=== PATIENT | female | born 1970 | race Caucasian/White ===

== ENCOUNTER 2017-01-17 06:47 | Day surgery (SDC) | payer OTHER ==
[2017-01-13 12:00] LABS: WBC (NOT ORDERED) (RFLEX) 0 (0-5)
[2017-01-13 12:14] LABS: HEMATOCRIT 42.4 % (36.0-48.0); HEMOGLOBIN 14.2 g/dL (12.0-16.0)
[2017-01-13 12:30] LABS: CHLORIDE, SERUM 106 MMOL/L (96-112); CO2 (CARBON DIOXIDE) 26 MMOL/L (24-34); CREATININE 0.67 MG/DL (0.55-1.02); GFR AFRICAN AMERICAN 122 ML/MIN (>=60); GFR NON AFRICAN AMERICAN 105 ML/MIN (>=60); POTASSIUM, SERUM 4.3 MMOL/L (3.5-5.3); SODIUM, SERUM 140 MMOL/L (135-148)
[2017-01-13 12:31] LABS: BUN (BLOOD UREA NITROGEN) 18 MG/DL (6-23); GLUCOSE, SERUM 90 MG/DL (60-99)
[2017-01-13 15:38] LABS: ASCORBIC ACID (UR NOT ORDER) NEG (NEG); BILIRUBIN, URINE NEGATIVE (NEG); KETONE, URINE NEGATIVE (NEG); LEUKOCYTE ESTERASE(NOT OR NEG (NEG)
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
[~2017-01-17 06:47] MED LIST: ALEVE220 MG PO; AMITIZA8 MCG PO; ASA5GR PO; BIOTIN5 MG PO; ESTRACE1 MG PO; INDO50 PO; LIOR10 PO; LIPITOR40 PO; LOP25 PO; NORCO1 TAB PO; PCET PO; PRILOSEC40 MG PO; PRIM50B PO; RANITIDINE300 MG PO; SEROQUEL50 MG PO; TOPAMAX25 PO; X25; X25 PO; XANAX1 MG PO; [UNRECOGNIZED DRUG - OTHER]
== END 2017-01-17 15:25 | disposition home or self-care (01) ==
LOC: SDC 06:47
PROVIDERS: Urology
PROC: 01HY0MZ Insertion of Neurostimulator Lead into Peripheral Nerve, Open Approach (ICD-10-PCS; 2017-01-17)
PROC: 01PY0MZ Removal of Neurostimulator Lead from Peripheral Nerve, Open Approach (ICD-10-PCS; principal; 2017-01-17 08:15)
DX: T83.110A Breakdown (mechanical) of urinary electronic stimulator device, initial encounter (principal); E78.00 Pure hypercholesterolemia, unspecified; G25.0 Essential tremor; M19.90 Unspecified osteoarthritis, unspecified site; K21.9 Gastro-esophageal reflux disease without esophagitis; K90.0 Celiac disease; K52.9 Noninfective gastroenteritis and colitis, unspecified; Z86.73 Personal history of transient ischemic attack (TIA), and cerebral infarction without residual deficits; Z87.828 Personal history of other (healed) physical injury and trauma; Z79.899 Other long term (current) drug therapy; Z87.891 Personal history of nicotine dependence; Z98.890 Other specified postprocedural states; Z90.49 Acquired absence of other specified parts of digestive tract; Z90.710 Acquired absence of both cervix and uterus; Z90.722 Acquired absence of ovaries, bilateral
CPT/HCPCS: 80048; 81001; 85014; 85018; 93005; A9270-GY; C1767; J0330; J0690; J1170; J1580; J1885; J2250; J2270; J2405; J3010